=== PATIENT | male | born 1940 | race Caucasian/White ===

== ENCOUNTER 2019-12-27 13:56 | Observation (INO) ==
[2019-12-27] MEDS ORDERED: NS 0.9% 1000 ml BAG 1,000 ML IV.FLUID IV ONE (14:58)
[2019-12-27] MEDS ORDERED: Cefepime 2 GM in NS 0.9% 50 ML 50 ML IVPB ONE (14:58)
[2019-12-27] MEDS ORDERED: Levofloxacin 750 MG IVPREMIX 750 MG/150 ML BAG IVPB ONE (15:01)
[2019-12-27] MEDS ORDERED: Cefepime 2 GM in Dextrose 2 GM/50 ML BAG IV ONE (15:30)
[2019-12-27 15:56] LABS: ABS Eosinophils 0.1 10^3/ul (0-0.6); ABS Lymphocytes 0.7 10^3/ul (1.0-4.8); ABS Monocytes 0.8 10^3/ul (0-0.8); ABS Neutrophils 7.8 10^3/ul (1.5-7.7); Eosinophil % 1.1 %; Hematocrit 37 % (42-52); Hemoglobin 13.3 g/dL (14.0-18.0); Lymphocyte % 7.2 %; Mean Corpuscular HGB Conc 36 g/dL (31-36); Mean Corpuscular Hemoglobin 37 pg (27-31); Mean Corpuscular Volume 103 fL (80-94); Mean Platelet Volume 8.8 fL (7.4-10.4); Platelet Count 158 10^3/uL (150-450); Red Cell Distribution Width 13 % (10-15); White Blood Count 9.4 10^3/uL (3.5-10.8)
[2019-12-27 16:09] LABS: Activated Partial Thrombo Time 29.1 seconds (26.0-38.0); INR 0.97 (0.82-1.09)
[2019-12-27 16:10] LABS: ALT 13 U/L (7-52); AST 16 U/L (13-39); Albumin 4.2 g/dL (3.2-5.2); Albumin/Globulin Ratio 2.1 (1-3); Alkaline Phosphatase 74 U/L (34-104); Anion Gap 8 mmol/L (2-11); BUN/Creatinine Ratio 13.3 (8-20); Blood Urea Nitrogen 13 mg/dL (6-24); C Reactive Protein 59.02 mg/L (<8.01); CO2 Carbon Dioxide 28 mmol/L (22-32); Calcium 8.7 mg/dL (8.6-10.3); Chloride 100 mmol/L (101-111); EGFR African American 89.5 (>60); Glucose 132 mg/dL (70-100); Potassium 3.3 mmol/L (3.5-5.0); Sodium 136 mmol/L (135-145); Total Protein 6.2 g/dL (6.4-8.9)
[2019-12-27 16:12] LABS: Urine Appearance Clear; Urine Bilirubin Negative (Negative); Urine Blood Negative (Negative); Urine Color Yellow; Urine Glucose 1+(50 mg/dL) (Negative); Urine Ketones Trace (Negative); Urine Nitrite Negative (Negative); Urine Protein Negative (Negative); Urine Specific Gravity 1.016 (1.010-1.030); Urine Urobilinogen Negative (Negative)
[2019-12-27] MEDS ORDERED: Albuterol/Ipratropium NEB.SOL (2.5/0.5 MG) 3 ML NEB.SOLN INH ONE (17:00)
[2019-12-27] MEDS ORDERED: methylPREDNISolone 125 mg 2 ML VIAL IV ONE (17:01)
[2019-12-27 17:43] LABS: Troponin I 0.04 ng/mL (<0.03)
[2019-12-27] MEDS ORDERED: Ondansetron 4 mg VIAL 2 MG/ML 2 ml VIAL IV PRN (20:05)
[2019-12-27] MEDS ORDERED: Senna TAB 8.6 mg TAB PO PRN (20:05)
[2019-12-27] MEDS ORDERED: NS 0.9% 1000 ml BAG 1,000 ML IV ONE (20:07)
[2019-12-27] MEDS ORDERED: Dextrose 50% Syringe 50 ml 25 GM/50 ML SYRINGE IV PUSH PRN (20:10)
[2019-12-27] MEDS: KCL 20 MEQ/100 ML IVPREMIX 20 MEQ/100 ML BAG IV SCH ×2 (20:13→23:51)
[2019-12-27] MEDS ORDERED: NS 0.9% 1000 ml BAG 1,000 ML IV SCH (20:15)
[2019-12-27 21:49] LABS: Folate 8.43 ng/mL (>3.99)
[2019-12-27 21:50] LABS: Vitamin B12 369 pg/mL (180-914)
[2019-12-27 22:27] LABS: Troponin I 0.04 ng/mL (<0.03)
[2019-12-27] MEDS: Mometasone/Formoter 100/5 MDI INH SCH (22:50)
[2019-12-27] MEDS: Enoxaparin 40 MG/0.4 ML SYR SUBCUT SCH (23:50)
[2019-12-28] MEDS: Fluticasone NASAL SPRAY 50MCG 16 gm SPRAY BTL BOTH NARES SCH ×3 (00:32→21:04)
[2019-12-28 01:28] LABS: Troponin I 0.03 ng/mL (<0.03)
[2019-12-28] MEDS: Imatinib 400 mg TAB (NF) PO SCH (08:18)
[2019-12-28] MEDS: cefTRIAXone 1 gm/50 mL NS BAG 1 GM/50 ML BAG IVPB SCH (08:18)
[2019-12-28 08:31] LABS: Hematocrit 35 % (42-52); Hemoglobin 12.2 g/dL (14.0-18.0); Mean Corpuscular HGB Conc 35 g/dL (31-36); Mean Corpuscular Hemoglobin 37 pg (27-31); Mean Corpuscular Volume 108 fL (80-94); Mean Platelet Volume 9.1 fL (7.4-10.4); Platelet Count 136 10^3/uL (150-450); Red Blood Count 3.28 10^6 /uL (4.18-5.48); Red Cell Distribution Width 13 % (10-15); White Blood Count 6.3 10^3/uL (3.5-10.8)
[2019-12-28 08:32] LABS: Albumin 3.3 g/dL (3.2-5.2); Albumin/Globulin Ratio 1.7 (1-3); EGFR African American 111.5 (>60); EGFR Non-African American 92.2 (>60); Globulin 1.9 g/dL (2-4); Potassium 3.8 mmol/L (3.5-5.0); Total Bilirubin 0.7 mg/dL (0.2-1.0); Total Protein 5.2 g/dL (6.4-8.9)
[2019-12-28] MEDS ORDERED: SALMETEROL INH SCH (09:00)
[2019-12-28 09:20] LABS: ABS Lymphocytes 0.4 10^3/ul (1.0-4.8); ABS Monocytes 0.2 10^3/ul (0-0.8); ABS Neutrophils 5.8 10^3/ul (1.5-7.7); Lymphocyte % 6.5 %
[2019-12-28] MEDS ORDERED: Azithromycin 500 mg/250 ml NS 500 MG/250 ML BAG IVPB SCH (09:30)
[2019-12-28] MEDS: Mometasone/Formoter 100/5 MDI INH SCH ×2 (11:01→20:07)
[2019-12-28] MEDS ORDERED: NS 0.9% 1000 ml BAG 1,000 ML IV SCH (11:03)
[2019-12-28] MEDS ORDERED: Iodixanol (CONTRAST) 320 MG/ML 100 ML SDV IV ONE (11:19)
[2019-12-28 16:54] LABS: Influenza A Molecular Negative (Negative); Influenza B Molecular Negative (Negative)
[2019-12-28] MEDS: Albuterol HFA INHALER 8 gm MDI INH PRN (20:07)
[2019-12-28] MEDS: Enoxaparin 40 MG/0.4 ML SYR SUBCUT SCH (21:03)
[2019-12-28 23:24] LABS: Calcium 8.2 mg/dL (8.6-10.3); Magnesium 1.6 mg/dL (1.9-2.7); Potassium 3.6 mmol/L (3.5-5.0)
[2019-12-28 23:29] LABS: BUN/Creatinine Ratio 17.9 (8-20); EGFR African American 92.8 (>60); EGFR Non-African American 76.7 (>60)
[2019-12-28] MEDS ORDERED: Potassium Chlor 20 meq TAB.ER PO ONE (23:50)
[2019-12-28] MEDS ORDERED: Magnesium Sulfate 2 gm BAG 2 GM/50 ML BAG IVPB ONE (23:50)
[2019-12-29 07:46] VITALS: BP 108/54
[2019-12-29] MEDS: Mometasone/Formoter 100/5 MDI INH SCH (07:46)
[2019-12-29] MEDS: Albuterol HFA INHALER 8 gm MDI INH PRN (07:46)
[2019-12-29] MEDS: cefTRIAXone 1 gm/50 mL NS BAG 1 GM/50 ML BAG IVPB SCH (08:26)
[2019-12-29] MEDS: Fluticasone NASAL SPRAY 50MCG 16 gm SPRAY BTL BOTH NARES SCH (08:26)
[2019-12-29] MEDS: Imatinib 400 mg TAB (NF) PO SCH (08:27)
== END 2019-12-29 10:48 | disposition home or self-care (01) ==
LOC: ED 13:56 → MED 13:56 → MEDTELE 12-28 23:24
PROVIDERS: ADMIT Physician Assistant; ATTEND Student in an Organized Health Care Education/Training Program